=== PATIENT | male | born 1955 | race Two or more races ===

== ENCOUNTER 2022-12-10 20:42 | Emergency (ER) | payer MEDICARE ==
[2022-12-10 20:48] VITALS: RESP 18; TEMP 98
[2022-12-10] MEDS ORDERED: DIPH,PERTUS(ACELL)TETVAC-LF 0.5 ML VIAL IM ONE (20:56)
[2022-12-10] MEDS ORDERED: MORPHINE SULFATE 4 MG/ML SYRINGE IM STA (20:56)
--- NOTE | 2022-12-10 21:00 | ED ---
Fall HPI - General Chief Complaint: Fall Stated Complaint: Fall Time Seen by Provider: 12/10/22 20:50 Source: patient Mode of arrival: wheelchair - History of Present Illness Initial Comments: 67-year-old male on Coumadin presents to the ED with a chief complaint of head injury. Per patient, tripped on his grandkids to by causing him to fall forward and to hit his head on the corner of a wall. No LOC at this time. No nausea or vomiting. Per , acting appropriately. Denies any other injury at this time. Now notes a laceration to the front of his face. Tetanus status unknown. No other complaints. - Related Data Allergies Allergy/AdvReac Type Severity Reaction Status Date / Time ketamine Allergy Rash/Hives Verified 12/10/22 20:48 Review of Systems ROS Statement: Those systems with pertinent positive or pertinent negative responses have been documented in the HPI. ROS Other: All systems not noted in ROS Statement are negative. Past Medical History Past Medical History: CVA/TIA, Deep Vein Thrombosis (DVT), Hyperlipidemia Additional Past Medical History / Comment(s): Fem pop in left knee, History of Any Multi-Drug Resistant Organisms: None Reported Past Surgical History: Orthopedic Surgery Past Psychological History: No Psychological Hx Reported Smoking Status: Current every day smoker Past Alcohol Use History: None Reported Past Drug Use History: None Reported General Exam Limitations: no limitations General appearance: alert, in no apparent distress Head exam: Present: normocephalic, other (Roxanol a 3 cm laceration above the patient's left eyebrow. No bhagat signs or raccoon's eyes.) Eye exam: Present: normal appearance, PERRL, EOMI Neck exam: Present: other (No midline cervical spinal tenderness to palpation) Respiratory exam: Present: normal lung sounds bilaterally Cardiovascular Exam: Present: regular rate, normal rhythm GI/Abdominal exam: Present: soft Extremities exam: Present: other (Strength and Sensation equal and intact in bilateral upper and lower extremities. Radial pulses 2+. DP/PT pulses 2+.) Back exam: Present: other (No Midline thoracic or lumbar spinal tenderness palpation.) Neurological exam: Present: alert, oriented X3 Course Vital Signs 12/10/22 20:44 Temperature 98 F Pulse Rate 76 Respiratory 18 Rate Blood Pressure 110/73 O2 Sat by Pulse 98 Oximetry Procedures - Laceration Laceration #1 Consent Obtained: verbal consent Site: face Description: linear Depth: simple, single layer Sedation/Analgesia: none Anesthetic Used: lidocaine 2%, with epi Anesthesia Technique: local infiltration Amount (mls): 2 Pre-repair: wound explored, irrigated extensively Type of Sutures: nylon Size of Sutures: 6-0 Number of Sutures: 3 Technique: simple, interrupted Patient Tolerated Procedure: well, no complications Medical Decision Making - Medical Decision Making Was pt. sent in by a medical professional or institution (, PA, ASSISTANT MANAGER TRAINEE, urgent care, hospital, or residential...) When possible be specific @ -No Did you speak to anyone other than the patient for history (EMS, parent, family, police, friend...)? What history was obtained from this source @ -No Did you review nursing and triage notes (agree or disagree)? Why? @ -I reviewed and agree with nursing and triage notes Were old charts reviewed (outside hosp., previous admission, EMS record, old EKG, old radiological studies, urgent care reports/EKG's, residential records)? Report findings @ -No old charts were reviewed Differential Diagnosis (chest pain, altered mental status, abdominal pain women, abdominal pain men, vaginal bleeding, weakness, fever, dyspnea, syncope, headache, dizziness, GI bleed, back pain, seizure, CVA, palpatations, mental health, musculoskeletal)? @ -Differential Headache: Migraine, tension, cluster, carbon monoxide, central venous thrombosis, pension karma temporal arteritis, acute closure glaucoma, intercranial hemorrhage, mastoiditis, sinusitis, head injury, this is not meant to be an all-inclusive list. EKG interpreted by me (3pts min.). @ -As above X-rays interpreted by me (1pt min.). @ -None done CT interpreted by me (1pt min.). @ -CT brain shows no bleed or evidence of other acute process. U/S interpreted by me (1pt. min.). @ -None done What testing was considered but not performed or refused? (CT, X-rays, U/S, labs)? Why? @ -None What meds were considered but not given or refused? Why? @ -None Did you discuss the management of the patient with other professionals (professionals i.e. , VICKIE, ASSISTANT MANAGER TRAINEE, lab, RT, psych nurse, director of social media marketing, community specialist, teacher, property utilization officer, heel caser)? Give summary @ -No Was smoking cessation discussed for >3mins.? @ -No Was critical care preformed (if so, how long)? @ -No Were there social determinants of health that impacted care today? How? (Homelessness, low income, unemployed, alcoholism, drug addiction, transportation, low edu. Level, literacy, decrease access to med. care, halfway, rehab)? @ -No Was there de-escalation of care discussed even if they declined (Discuss DNR or withdrawal of care, Hospice)? DNR status @ -No What co-morbidities impacted this encounter? (DM, HTN, Smoking, COPD, CAD, Cancer, CVA, ARF, Chemo, Hep., AIDS, mental health diagnosis, sleep apnea, morbid obesity)? @ -None Was patient admitted / discharged? Hospital course, mention meds given and route, prescriptions, significant lab abnormalities, going to OR and other pertinent info. @ -Discharged. CT brain shows no acute process. Laceration repaired for further details please see procedure note. Bacitracin applied and covered with bandage. Patient discharged home in stable condition discussed return precautions with patient and spouse who verbalizes agreement. Undiagnosed new problem with uncertain prognosis? @ -No Drug Therapy requiring intensive monitoring for toxicity (Heparin, Nitro, Insulin, Cardizem)? @ -No Were any procedures done? @ -Yes, laceration repair Diagnosis/symptom? @ -Head injury s/p mechanical slip and fall onto wall, laceration Acute, or Chronic, or Acute on Chronic? @ -Acute Uncomplicated (without systemic symptoms) or Complicated (systemic symptoms)? @ -Uncomplicated Side effects of treatment? @ -No Exacerbation, Progression, or Severe Exacerbation? @ -No Poses a threat to life or bodily function? How? (Chest pain, [place], [place], pneumonia, PE, COPD, DKA, ARF, appy, cholecystitis, CVA, Diverticulitis, Homicidal, Suicidal, threat to staff... and all critical care pts) @ -No Disposition Clinical Impression: Head injury, Laceration Disposition: HOME SELF-CARE Condition: Good Instructions (If sedation given, give patient instructions): Fall Prevention for Older Adults (ED), Care For Your Stitches (ED) Additional Instructions: Please return to the Emergency Department if symptoms worsen or any other concerns. Return in 4-5 days for suture removal. Monitor for signs of infection. Is patient prescribed a controlled substance at d/c from ED?: No Referrals: None,Stated [Primary Care Provider] - 1-2 days Time of Disposition: 23:41
--- NOTE | 2022-12-10 21:40 | CT ---
EXAMINATION TYPE: CT brain heraclio christiansen con DATE OF EXAM: 12/10/2022 COMPARISON: None HISTORY: 67-year-old male pain after Fall, on blood thinners. CT DLP: 1685.4 mGycm Automated exposure control for dose reduction was used. Technique: Examination of the head was done in axial plane without intravenous contrast. Coronal and sagittal reconstructions performed. CT of the cervical spine was obtained in axial plane without intravenous injection of contrast mater ial. Coronal and sagittal reformatted images were obtained from the axial views for evaluation of f ractures, spinal alignment and canal. FINDINGS: Head: There is no evidence of acute intracranial hemorrhage, acute ischemic changes, mass, mass-effect, or extra-axial fluid collection. There is no effacement of cerebral sulci or basal subarachnoid cister ns. There is no hydrocephalus. There is no midline shift. Mercado-white matter distinction is preserv ed. Encephalomalacia anterior left parietal lobe. Small area of encephalomalacia left parieto-occipital j unction. Moderate generalized cerebral cortical volume loss. Small amount of fluid in the inferior right mastoid air cells. Leftward nasal septal deviation. 8 mm mucosal retention cyst or polyp left sphenoid sinus. Orbits and globes are intact. There may be some left greater the right mild bifrontal scalp contusion. No underlying calvarial frac ture. Cervical spine: No craniocervical junction abnormality, predental space widening, or prevertebral soft tissue swellin g. Extensive ACDF fusion changes from C3 through T1 levels. Alignment is maintained. Bulky anterior endplate spondylosis C2-C3. This calcified complexes and residual posterior osteophytic ridging at multiple levels. This results in at least moderate spinal canal stenosis C2-C3, C5-C6, C6-C7, and C7-T1. Alignment is maintained. Nodularity and enlargement of the thyroid gland. Possible underlying nodules measuring up to 3.0 cm. Possible underlying variable moderate and severe bilateral neuroforaminal stenoses. Sagittal and coronal reformatted images confirm above findings. COMBINED IMPRESSION: 1. Mild/moderate generalized atrophy. Areas of old infarcts left anterior parietal lobe and left occi pital parietal junction. There may be some mild bifrontal scalp contusions. No acute intracranial abn ormality seen. 2. Extensive ACDF changes from C3 through T1 levels. Moderate multilevel spinal canal stenoses are garcia ggested secondary to residual posterior osteophytic ridging and disc osteophyte complex. There also v ariable moderate and severe bilateral neuroforaminal stenoses throughout. 3. No acute fracture or malalignment is seen of the cervical spine. 4. Small amount of fluid inferior right mastoid air cells. Correlate for any mastoid pain to exclude mastoiditis.
[2022-12-10] MEDS ORDERED: LIDOCAINE 2%-EPI 1:100,000 20 ML VIAL SQ STA (21:41)
[2022-12-10] MEDS ORDERED: BACITRACIN OINT 1 EACH PACKET TOPICAL ONE (23:42)
[2022-12-11 00:04] VITALS: BP 113/70; PULSE 62
== END 2022-12-11 00:03 | disposition home or self-care (01) ==
LOC: EC 20:42
DX: S01.112A Laceration without foreign body of left eyelid and periocular area, initial encounter (principal); M47.812 Spondylosis without myelopathy or radiculopathy, cervical region; F17.200 Nicotine dependence, unspecified, uncomplicated; Z88.6 Allergy status to analgesic agent; Z23 Encounter for immunization; W18.09XA Striking against other object with subsequent fall, initial encounter
CPT/HCPCS: 72125; 70450; 90715; 99284; 96372; 90471; 12013; J2270

== ENCOUNTER → 2024-08-28 | Outpatient (CLI) | payer MEDICARE ==
[2024-08-28 09:55] LABS: INR 1.6 (<1.2); Prothrombin Time 16.7 sec (10.0-12.5)
== END | disposition home or self-care (01) ==
LOC: LABWHC1 08:46
PROVIDERS: ATTEND Dentist Oral and Maxillofacial Surgery
DX: D68.32 Hemorrhagic disorder due to extrinsic circulating anticoagulants (principal)
CPT/HCPCS: 36415; 85610